=== PATIENT | female | born 1965 | race Caucasian/White ===

== ENCOUNTER 2017-04-27 20:15 | Emergency (ER) | payer MEDICAID ==
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
--- NOTE | 2017-04-28 07:45 | Diagnostic Imaging Report ---
Chest x-ray single view History: Trauma Comparison: None The heart size is normal. No focal pulmonary parenchymal processes. No hilar or mediastinal abnormalities. Impression: No acute abnormalities.
--- NOTE | 2017-04-28 07:49 | Diagnostic Imaging Report ---
Exam: Cervical spine 3 views HISTORY: Trauma Findings: Multiple views of the cervical spine reviewed. The study demonstrates no evidence of fracture dislocation or subluxation. No prevertebral soft tissue swelling is noted. The pedicles are intact. The posterior elements are normal. IMPRESSION: Normal examination of the cervical spine.
== END 2017-04-27 21:55 | disposition home or self-care (01) ==
LOC: ER 20:15
DX: S16.1XXA Strain of muscle, fascia and tendon at neck level, initial encounter (principal); S20.219A Contusion of unspecified front wall of thorax, initial encounter; E78.5 Hyperlipidemia, unspecified; M12.9 Arthropathy, unspecified; E07.9 Disorder of thyroid, unspecified; V89.2XXA Person injured in unspecified motor-vehicle accident, traffic, initial encounter; Y93.89 Activity, other specified; Y92.89 Other specified places as the place of occurrence of the external cause; Y99.8 Other external cause status
CPT/HCPCS: 71010-TC; 72040-TC; Z7502